=== PATIENT | female | born 1955 | race Caucasian/White ===

== ENCOUNTER → 2017-11-15 09:06 | Outpatient (CLI) | payer OTHER, SELFPAY ==
--- NOTE | 2017-11-15 09:12 | MM_ITS ---
MM Dig screening mamm BI w/CAD CAD Screening INDICATION: Screening for breast cancer ORDERING PHYSICIAN: Rg Lincoln MD PATIENT AGE: 62 years COMPARISON: 06/11/2007 TECHNIQUE: Standard CC and MLO images were obtained. R2 CAD reviewed. FINDINGS: There is average fibroglandular tissue. No malignant appearing mass or malignant appearing microcalcification is evident. Benign-appearing nodular densities are present bilaterally. IMPRESSION: Benign findings. No evidence of malignancy BI-RADS Category: 2 Benign Finding(s) RECOMMENDED FOLLOW-UP: 1YR - 1 YEAR FOLLOW-UP (A letter has been sent to the patient regarding results of the study.)
--- NOTE | 2017-11-15 09:12 | XR_ITS ---
XR DEXA axial skeleton HISTORY: ITS.REASON: screening ORDERING PHYSICIAN: Rg Lincoln MD PATIENT AGE: 62 years COMPARISON: None FINDINGS: The BMD measured at the Right femoral neck is 0.842 g/cm squared with a T score of -1.4. This is considered Osteopenic according to the World Health Organization criteria. Fracture risk is Moderate. Treatment is advised. L1 L4 density has a T score of 2.4 IMPRESSION: Osteopenia with moderate fracture risk. Treatment suggested. Recommend follow-up exam November 2019
--- NOTE | 2017-11-15 09:12 | US_ITS ---
US transvaginal HISTORY: Right-sided pelvic pain, dysfunctional uterine bleeding ITS.REASON: DUB ORDERING PHYSICIAN: Rg Lincoln MD PATIENT AGE: 62 years Comparison: None FINDINGS: UTERUS: The uterus measures 6.8 x 3.4 x 4.7 cm. Combined endometrial thickness is 7 mm. There is a small Nabothian cyst at 7 mm. The right ovary was not identified. The left ovary is small measuring 9 x 7 mm. No adnexal mass or cul-de-sac fluid. IMPRESSION: 1. Endometrium is 7 mm which is is slightly thickened for postmenopausal patient. 2. Right ovary not identified
== END ==
PROVIDERS: PCP Family Medicine; Visit Provider Obstetrics & Gynecology
DX: Z12.31 Encounter for screening mammogram for malignant neoplasm of breast (principal); Z78.0 Asymptomatic menopausal state; N93.8 Other specified abnormal uterine and vaginal bleeding
CPT/HCPCS: 76830; 77067; 77080

== ENCOUNTER → 2017-11-20 22:35 | Outpatient (CLI) | payer OTHER, SELFPAY | PROVIDERS: PCP Family Medicine; Visit Provider Obstetrics & Gynecology | DX: R00.2 Palpitations (principal) | CPT/HCPCS: 93005 ==

== ENCOUNTER → 2017-12-06 06:51 | Outpatient (CLI) | payer OTHER, SELFPAY ==
--- NOTE | 2017-12-06 06:53 | CA_ITS ---
PROCEDURE: 2-D M-mode and color Doppler study INDICATIONS FOR THE TEST: Chest pain COPD Heart Murmur Tobacco Smoking Palpitations+ Fatigue Syncope Edema Hypertension Diabetes Mellitus Rheumatic Fever SOB+MALONE+Obesity+Hyperlipidemia+ Family History HD+ Additional History fatigue in the evening PATIENT INFORMATION HEIGHT: 67 WEIGHT: 226 GENDER: Female B/P: 127/65 2-D/M-MODE INTERPRETATION: 2-D MEASUREMENTS OBSERVED VALUES IN CMS Right Ventricular Dimension (RVDd) 2.6 Interventricular Septum (Thickness)(IVsd) 0.9 Left Ventricular Internal Dimensions(LVIDd) 5.3 Left Ventricular Posterior Wall (Thickness)(LVPWd) 0.9 Aortic Root 2.7 Aortic Cusp Separation 2.0 Left Atrial Dimensions (LAD) 4.4 2D 1. Left atrium is mildly enlarged, left ventricle is normal size, there is no concentric left ventricular hypertrophy, visually estimated ejection fraction 55% with no regional wall motion abnormality. 2. The right atrium and right ventricle are relatively normal size and function. 3. The aortic valve is minimally thickened and fibrosed. 4. The mitral and tricuspid valvular grossly normal. 5. The pulmonic valve is poorly visualized. 6. No significant pericardial effusion noted. DOPPLER INTERROGATION: Doppler interrogation of the aortic, mitral and tricuspid valvular presence of mild mitral and tricuspid regurgitation, tricuspid regurgitation jet velocity is inadequate for calculation of the right ventricular systolic pressure, grade 1 diastolic dysfunction seen without tissue Doppler evidence of raised left atrial pressure. CONCLUSION: 1. Mildly enlarged left atrium, normal left ventricular size, there is no concentric left ventricular hypertrophy, visually estimated ejection fraction of 55% with no regional wall motion abnormality. Grade 1 diastolic dysfunction seen without tissue Doppler evidence of raised left atrial pressure. 2. Mild mitral and tricuspid regurgitation 3. No significant pericardial effusion noted.
--- NOTE | 2017-12-06 06:53 | NM_ITS ---
SPECT MYOCARDIAL PERFUSION SCAN, REST AND STRESS: EXERCISE STRESS: [facility] REVIEW QGS EF AND WALL MOTION EVALUATION: QPS - PERFUSION EVALUATION: HISTORY: SOB, Palpitations, Fatigue, Abnormal EKG PROCEDURE: Rest imaging performed after administration of10.53 millicuries Tc MIBI. Dose administered at7:05 a.m., with imaging thereafter. Stress imaging was then performed following6 minutes of exercise stress. The patient achieved a heart [id number] with projected heart rate of133 . Resting BP132/63 with stress 170/80. At maximum exercise stress,32.0 millicuries Tc MIBI administered at8:25 a.m. with [id number] minutes thereafter. FINDINGS: Perfusion Evaluation: The single slice spect images as well as the [facility] bull's-eye data summary were reviewed. Wall Motion and Ejection Fraction Evaluation: Gated SPECT review and analysis used to evaluate these features. There is a 69 % left ventricular ejection fraction. There seems to be good wall motion Stress images reveal decreased activity in the anterior wall while rest images reveal uniform echo activity. Gated images corrected ejection fraction is 69% with normal wall motion IMPRESSION: High risk abnormal stress test with reversible ischemia in the anterior wall. Normal ejection fraction normal wall motion
--- NOTE | 2017-12-06 07:40 | HMH.ITSHM ---
Current Home Medications as stated by this patient Risa Felder or financial service representative. []RALOXIFENE LEVOTHYROXINE CALCIUM MULTIVITAMIN
== END ==
PROVIDERS: PCP Family Medicine; Visit Provider Internal Medicine
DX: R00.2 Palpitations (principal); R06.09 Other forms of dyspnea; R94.31 Abnormal electrocardiogram [ECG] [EKG]
CPT/HCPCS: 78452; 93017; 93306; A9502

== ENCOUNTER → 2018-12-11 09:04 | Outpatient (CLI) | payer OTHER, SELFPAY ==
--- NOTE | 2018-12-11 09:10 | MM_ITS ---
PROCEDURE: MM DIG SCREENING MAMM BI W/CAD Patient Age:63Y CLINICAL INDICATION: screening routine screening mammogram No hormones. 50 lb weight loss noted. No new complaints otherwise. Family history. Noncontributory COMPARISON: MM [employer] [facility] [employer] Rec[employer] from 04/27/2006 MM [employer] [facility] [employer] from 06/11/2007 RIBI MM Dig screening mamm BI w/CAD from 11/15/2017 TECHNIQUE: Standard CC and MLO images were obtained. R2 CAD reviewed. FINDINGS: [id number] residual breast density. CAD highlights no areas of significant concern.. No dominant or suspicious mass but no suspicious calcifications. No significant change since prior studies. But stable appearing intramammary node at the deep axillary left breast unchanged since 2018 Bilateral follow-up mammogram 1 year recommended the IMPRESSION: . Stable bilateral mammogram with no significant new findings. Bilateral follow-up 1 year BI-RAD Category: 1 Negative FOLLOW-UP: 1YR 1 Year Follow-up the (A letter has been sent to the patient regarding results of the study.) Dictated by: Al Arango MD 12/11/2018 15:57 Electronically signed by Al Arango MD in [place] 12/11/2018 15:57
== END ==
PROVIDERS: PCP Nurse Practitioner Family; Visit Provider Obstetrics & Gynecology
DX: Z12.31 Encounter for screening mammogram for malignant neoplasm of breast (principal)
CPT/HCPCS: 77067

== ENCOUNTER → 2019-12-09 08:54 | Outpatient (CLI) | payer MEDICARE, SELFPAY ==
--- NOTE | 2019-12-09 | XR_ITS ---
PROCEDURE: XR FOOT LT MIN 3V CLINICAL INDICATION: PAIN IN LT FOOT COMPARISON: No exams were available for comparison FINDINGS: No fracture or dislocation. No lytic or blastic change. There is normal mineralization. The minimal osteoarthritic change of the 1st metatarsophalangeal joint and at the talonavicular joint. There is a small calcaneal spur. Other findings:None. IMPRESSION: Mild osteoarthritis Dictated by: Carter Fonseca MD 12/09/2019 10:25 Carter Fonseca MD in [place] 12/09/2019 10:25
--- NOTE | 2019-12-09 | XR_ITS ---
PROCEDURE: XR FOOT RT MIN 3V CLINICAL INDICATION: PAIN IN RT FOOT COMPARISON: No exams were available for comparison FINDINGS: No fracture or dislocation. No lytic or blastic change. There is normal mineralization. Minimal osteoarthritic change 1st metatarsophalangeal joint and talonavicular joint. Small calcaneal spur. Other findings:None. IMPRESSION: Mild osteoarthritic change Dictated by: Carter Fonseca MD 12/09/2019 10:26 Carter Fonseca MD in [place] 12/09/2019 10:26
== END ==
PROVIDERS: PCP Nurse Practitioner Family; Visit Provider Nurse Practitioner Family
DX: M79.672 Pain in left foot (principal); M79.671 Pain in right foot
CPT/HCPCS: 73630

== ENCOUNTER → 2021-01-19 09:28 | Outpatient (CLI) | payer MEDICARE, SELFPAY ==
--- NOTE | 2021-01-19 09:39 | MM_ITS ---
PROCEDURE INFORMATION: Exam: MG Bilateral Screening 3D Mammography Exam date and time: 01/19/2021 9:39 AM Age: 65 years old Clinical indication: Screening mammogram TECHNIQUE: Imaging protocol: Bilateral screening tomosynthesis and 2D mammography including computer-aided detection (CAD) when performed. COMPARISON: 1. MG MM DIG SCREENING MAMM BI W/CAD 12/11/2018 9:47 AM 2. MG SCBI MM Dig screening mamm BI w/CAD 11/15/2017 9:35 AM 3. MG MM [employer] 06/11/2007 10:07 AM 4. MG MM [employer] [facility] [employer] T[employer] 04/27/2006 10:07 AM FINDINGS: MAMMOGRAPHY: Breast composition: There are scattered areas of fibroglandular density. Mass: None. Architectural distortion: No new or suspicious architectural distortion. Calcifications: No new or suspicious calcifications are present Asymmetric density: No new or suspicious asymmetric density is present Skin thickening: None. Axillary adenopathy: None. IMPRESSION: No mammographic evidence of malignancy. Recommend annual screening mammography unless otherwise clinically indicated. ASSESSMENT: BI-RADS category 1: Negative
--- NOTE | 2021-01-19 10:30 | XR_ITS ---
PROCEDURE: XR DEXA AXIAL SKELETON CLINICAL HISTORY: POST MENOPAUSAL COMPARISON: CR DEXAAX XR DEXA axial skeleton from 11/15/2017 FINDINGS: The right hip BMD is 0.782 with a T-score of -0.6. The left hip BMD is 0.696 with a T-score of -1.4. The lumbar spine BMD is 1.239 with a T-score of 1.7. Previously the lowest density was in the right femoral neck with a T-score -1.4 IMPRESSION: This patient is considered normal according to the World Health Organization criteria. Fracture risk is low. Based on these results a follow-up exam is recommended in 2 year. Dictated by: Carter Fonseca MD 01/19/2021 14:47 Carter Fonseca MD in [place] 01/19/2021 14:47
== END ==
PROVIDERS: PCP Nurse Practitioner Family; Visit Provider Nurse Practitioner Family
DX: Z12.31 Encounter for screening mammogram for malignant neoplasm of breast (principal); Z78.0 Asymptomatic menopausal state
CPT/HCPCS: 77063; 77067; 77080

== ENCOUNTER 2023-02-20 13:53 | Outpatient (CLI) | payer MEDICARE, SELFPAY ==
[2023-02-20 15:06] LABS: Alanine Aminotransferase 16 U/L (12-78); Albumin Level 4.2 g/dl (3.5-5.0); Albumin/Globulin Ratio 1.5 (1.1-1.8); Alkaline Phosphatase 70 U/L (38-126); Anion Gap 7.4 mEq/L (5-15); Aspartate Amino Transferase 27 U/L (14-36); Bilirubin,Total 0.7 mg/dl (0.2-1.3); Blood Urea Nitrogen 18 mg/dl (7-17); Carbon Dioxide 33 mmol/L (22.0-30.0); Chloride 102 mmol/L (98-107); Chol/HDL Ratio 3.8 (1-3.5); Cholesterol 256 mg/dl (140-200); Estimated Glomerular Filt Rate 83 ml/min (>60); GFR (African American) 100 ML/MIN (>60); Globulin 2.8 g/dL (1.3-3.2); Glucose 88 mg/dl (74-100); HDL Cholesterol 68 mg/dl (40-60); Potassium 4.4 mmoL/L (3.5-5.1); Sodium 138 mmol/L (136-145); Triglycerides 63 mg/dl (30-150); VLDL Cholesterol 13 mg/dL (0-40)
[2023-02-20 15:18] LABS: Direct LDL Cholesterol 140.63 mg/dL (100-129)
[2023-02-20 15:25] LABS: 25-OH Vitamin D, Total 49.9 ng/mL (30-100)
[2023-02-20 15:59] LABS: Vitamin B12 293 pg/mL (239-931)
[2023-02-22 08:32] LABS: Triiodothyronine (T3) Free 2.7 pg/mL (2.0-4.4)
== END 2023-02-20 23:59 ==
LOC: LAB.DROPOF 13:54
PROVIDERS: PCP Nurse Practitioner Family; Visit Provider Nurse Practitioner Family
DX: E03.9 Hypothyroidism, unspecified (principal); M85.80 Other specified disorders of bone density and structure, unspecified site; R79.89 Other specified abnormal findings of blood chemistry; Z78.9 Other specified health status
CPT/HCPCS: 80053; 80061; 82306; 82607; 84443; 84481

== ENCOUNTER 2023-03-06 16:08 | Outpatient (CLI) | payer MEDICARE, SELFPAY ==
--- NOTE | 2023-03-06 16:08 | MM_ITS ---
PROCEDURE INFORMATION: Exam: MG Bilateral Screening 3D Mammography Exam date and time: 03/06/2023 3:54 PM Age: 67 years old Clinical indication: Screening examination TECHNIQUE: Imaging protocol: Bilateral Screening tomosynthesis and 2D mammography including computer-aided detection (CAD) when performed. COMPARISON: 1. MG MM DIG SCREENING MAMM BI W/CAD 01/19/2021 9:50 AM 2. MG MM DIG SCREENING MAMM BI W/CAD 12/11/2018 9:47 AM FINDINGS: MAMMOGRAPHY: Breast composition: There are scattered areas of fibroglandular density. Mass: None. Architectural distortion: None. Calcifications: No suspicious calcifications. Asymmetric density: None. Skin thickening: None. Axillary adenopathy: None. IMPRESSION: No mammographic evidence of malignancy. Annual screening is recommended unless otherwise clinically indicated. ASSESSMENT: BI-RADS Category 1: Negative
== END 2023-03-06 23:59 ==
LOC: RAD 16:08
PROVIDERS: PCP Nurse Practitioner Family; Visit Provider Nurse Practitioner Family
DX: Z12.31 Encounter for screening mammogram for malignant neoplasm of breast (principal)
CPT/HCPCS: 77063; 77067

== ENCOUNTER 2023-03-10 08:33 | Outpatient (CLI) | payer MEDICARE, SELFPAY ==
--- NOTE | 2023-03-10 08:34 | XR_ITS ---
FINAL REPORT CLINICAL HISTORY: Osteoporosis screening COMPARISON: 01/19/2021 FINDINGS: Using L1-4, the bone mineral density of the spine is 1.231 g/cm2, corresponding to T-score of 1.7 which is within normal limits. Previously was 1.239 with T-score of 1.7. Using the left hip, the bone mineral density of the femoral neck is 0.737 g/cm2, corresponding to a T-score of -1.0 which is at the lower limits of normal. Previously was 0.696 with T-score of -1.4. Using the right hip, the bone mineral density of the femoral neck is 0.776 g/cm2, corresponding to a T-score of -0.7 which is within normal limits. Previously was 0.782 with T-score of -0.6. FRAX not reported because all T-scores at or above -1.0. NOTE: T-score: Standard deviation compared with peak bone mass of young adult mean. *Following the recommendations of the International Society of Bone densitometry, classification of hip BMD is based on the lower of two T-scores; total hip or femoral neck. IMPRESSION: Normal bone mineral density of the lumbar spine and hips. Reviewed, Interpreted and Dictated by Tu Gao MD Transcribed by Haylee Mcdonald Authenticated and [facility]
== END 2023-03-10 23:59 ==
LOC: RAD 08:34
PROVIDERS: PCP Nurse Practitioner Family; Visit Provider Nurse Practitioner Family
DX: Z13.820 Encounter for screening for osteoporosis (principal); Z78.0 Asymptomatic menopausal state
CPT/HCPCS: 77080

== ENCOUNTER 2023-05-30 12:38 | Outpatient (CLI) | payer MEDICARE, SELFPAY ==
[2023-05-30 13:53] LABS: Alanine Aminotransferase 17 U/L (12-78); Albumin Level 4.2 g/dl (3.5-5.0); Albumin/Globulin Ratio 1.6 (1.1-1.8); Alkaline Phosphatase 81 U/L (38-126); Aspartate Amino Transferase 26 U/L (14-36); Bilirubin,Total 0.6 mg/dl (0.2-1.3); Blood Urea Nitrogen 19 mg/dl (7-17); Calcium 9.7 mg/dl (8.4-10.2); Carbon Dioxide 30 mmol/L (22.0-30.0); Chloride 106 mmol/L (98-107); Cholesterol 242 mg/dl (140-200); Estimated Glomerular Filt Rate 83 ml/min (>60); GFR (African American) 100 ML/MIN (>60); Globulin 2.6 g/dL (1.3-3.2); Glucose 100 mg/dl (74-100); Sodium 143 mmol/L (136-145); Total Protein,Serum 6.8 g/dl (6.3-8.2); Triglycerides 49 mg/dl (30-150); VLDL Cholesterol 10 mg/dL (0-40)
[2023-05-30 14:00] LABS: HDL Cholesterol 106 mg/dl (40-60)
[2023-05-30 14:04] LABS: Direct LDL Cholesterol 118.88 mg/dL (100-129)
== END 2023-05-30 23:59 | disposition home or self-care (01) ==
LOC: LAB.DROPOF 12:38
PROVIDERS: PCP Nurse Practitioner Family; Visit Provider Nurse Practitioner Family
DX: E78.5 Hyperlipidemia, unspecified (principal)
CPT/HCPCS: 80053; 80061

== ENCOUNTER 2023-10-04 13:09 | Outpatient (CLI) | payer MEDICARE, SELFPAY ==
[2023-10-04 19:39] LABS: T4 (Thyroxine) 8.8 ug/dl (5.53-11.0)
[2023-10-04 19:52] LABS: Thyroid Stimulating Hormone 1.32 uIU/mL (0.465-4.68)
[2023-10-06 08:20] LABS: Triiodothyronine (T3) Free 3.1 pg/mL (2.0-4.4)
== END 2023-10-04 23:59 | disposition home or self-care (01) ==
LOC: LAB.DROPOF 10-09 13:10
PROVIDERS: PCP Nurse Practitioner Family; Visit Provider Nurse Practitioner Family
DX: E03.9 Hypothyroidism, unspecified (principal)
CPT/HCPCS: 84436; 84443; 84481

== ENCOUNTER 2024-10-21 09:45 | Outpatient (CLI) | payer MEDICARE, SELFPAY ==
--- OUTSIDE RECORDS SUMMARY | 2019-03-28 09:15 | XMS_ITS | Continuity of Care Document ---
Author Organization [facility] Address [address] [address] Phone Care Team Providers Care Family Court Registrar Name Role Phone Rakan Romero MD Unavailable Unavailable Procedures Procedure Date Office/outpatient visit,est, mod 2019 POLYSOMNOGRAPHY, 4 OR MORE PROFESSIONAL COMP POLYSOMNOGRAPHY, 4 OR MORE TECHNICAL COM P Office/outpatient visit,est, mod 2019 POLYSOMNOGRAPHY, 4 OR MORE PROFESSIONAL COMP POLYSOMNOGRAPHY, 4 OR MORE TECHNICAL COM P Office/outpatient visit,new, mod 2018 Advance Directives Directive Yes / No Effective Date File Name No Information Encounters Encounter Description Practice Location Reason(s) For Visit Diagnoses Date Provider Providers Copied on Encounter Office/outpa tient visit,est, mod [facility], [address], [id number], tel:[phone] [facility] No Information 0 Pope Rakan. [address] [place] [address], [id number], [place]. tel:[phone] Referring Provider: Rakan Funez, [address] [place] [address], [id number]. tel:[phone] [facility], [address], [id number], tel:[phone] [facility] [place] No Information 0 Pope Rakan. [address] [place] [address], [id number], [place]. tel:[phone] Referring Provider: Rakan Funez, [address] [place] [address], [id number]. tel:[phone] [facility], [address] [place] [address], [id number], tel:[phone] [facility] No Information 0 Girma Lozada. [address], [address] [place] [address], [id number], [place]. tel:[phone] Referring Provider: Neville Rayo MD, [address] [place] [address], [id number]. tel:[phone] Office/outpa tient visit,est, [facility], [address] [place] [address], [id number], [place] tel:[phone] [facility] No Information 0 Pope Rakan. [address] [place] [address], [id number], [place]. tel:[phone] Referring Provider: Rakan Funez, [address] [place] [address], [id number]. tel:[phone] [facility], [address] [place] [address], [id number], [place] tel:[phone] [facility] No Information 9 Pope Rakan. [address] [place] [address], [id number], [place]. tel:[phone] Referring Provider: Rakan Funez, [address] [place] [address], [id number]. tel:[phone] [facility], [address], [id number], [place] tel:[phone] [facility] [place] No Information 9 Girma Lozada. [address] [place] [address], [id number], . tel:[phone] Referring Provider: Neville Rayo MD, [address] [place] [address], [place], [address]. tel:[phone] Office/outpa tient visit,[facility], [address] [address], [place], [place], [id number], [place] tel:[phone] [facility] No Information 9 Pope Rakan. [address] [place] [address], [id number], . tel:[phone] Referring Provider: Esther CHENP S, [address] [place], [address]. tel:[phone] Family History Family Member Type Diagnosis Age At Onset No Information Payers Payer name Insurance type Covered democrat ID Authoriza tion(s) Medicare Cigna [id number] [employer] [facility] CI [id number] Social History Type Description Quantity Date Captured Comments Sex Female Smoking Status No Information Chief Complaint And Reason For Visit No Information Reason For Referral Reason For Referral No Information History Of Present Illness Encounter Date Complaint History Of Prese nt Illness No Information Functional Status Date Functional Assessmen t No Information Instructions Date Instruction Additional Infor mation No Information Assessments Type Assessment Date No Information Patient Care Teams Name Effective Dates (start - stop) Status Members No Information
[2024-10-21 18:24] LABS: Alanine Aminotransferase 17 U/L (12-78); Albumin Level 4.6 g/dl (3.5-5.0); Albumin/Globulin Ratio 1.5 (1.1-1.8); Alkaline Phosphatase 103 U/L (38-126); Anion Gap 14.8 mEq/L (5-15); Aspartate Amino Transferase 24 U/L (14-36); Bilirubin,Total 0.9 mg/dl (0.2-1.3); Blood Urea Nitrogen 16 mg/dl (7-17); Calcium 9.5 mg/dl (8.4-10.2); Carbon Dioxide 27 mmol/L (22.0-30.0); Chloride 103 mmol/L (98-107); Cholesterol 221 mg/dl (140-200); Creatinine,Serum 0.80 mg/dl (0.52-1.04); Estimated Glomerular Filt Rate 71 ml/min (>60); GFR (African American) 86 ML/MIN (>60); Globulin 3.1 g/dL (1.3-3.2); Glucose 89 mg/dl (74-100); HDL Cholesterol 42 mg/dl (40-60); Potassium 4.8 mmoL/L (3.5-5.1); Sodium 140 mmol/L (136-145); Total Protein,Serum 7.7 g/dl (6.3-8.2); Triglycerides 99 mg/dl (30-150)
[2024-10-21 18:40] LABS: 25-OH Vitamin D, Total 28.9 ng/mL (30-100)
[2024-10-21 18:43] LABS: T4 (Thyroxine) 9.2 ug/dl (5.53-11.0)
[2024-10-21 19:16] LABS: Vitamin B12 652 pg/mL (239-931)
[2024-10-21 19:29] LABS: Free T4 (Free Thyroxine) 1.33 ng/dl (0.78-2.19)
[2024-10-21 20:13] LABS: Thyroid Stimulating Hormone 1.92 uIU/mL (0.465-4.68)
[2024-10-23 13:18] LABS: Triiodothyronine (T3) Free 2.9 pg/mL (2.0-4.4)
== END 2024-10-21 23:59 | disposition home or self-care (01) ==
LOC: LAB.DROPOF 10-22 10:09
PROVIDERS: PCP Nurse Practitioner Family; Visit Provider Nurse Practitioner Family
DX: E03.9 Hypothyroidism, unspecified (principal); R79.89 Other specified abnormal findings of blood chemistry; E78.2 Mixed hyperlipidemia
CPT/HCPCS: 80053; 80061; 82306; 82607; 84436; 84439; 84443; 84481; 86376; 86800

== ENCOUNTER 2024-11-05 10:02 | Outpatient (CLI) | payer MEDICARE, SELFPAY ==
--- OUTSIDE RECORDS SUMMARY | 2024-11-05 10:14 | XMS_ITS ---
Laboratory report Created on: October 25, 2024 CHAPIS ORTIZ : 1955 Sex: Female Author Organization Unknown PROBLEMS Problems List Code Description RESULTS Laboratory Orders Date Order Code Test 2024-10-21 [id number] THYROGLOBULIN AN TIBODY 2024-10-21 [id number] THYROID PEROXIDA SE (TPO) AB Laboratory Results Date LOINC Test Value Unit Reference Range Interpre tation 2024-10-21 8098-6 THYROGLOBULIN ANTIBODY 3.7 IU/ML 0.0-0. 9 H 2024-10-21 [id number] THYROID PEROXIDA SE (TPO) AB 160 IU/ML 0-34 H
--- OUTSIDE RECORDS SUMMARY | 2024-11-05 10:14 | XMS_ITS ---
Laboratory report Created on: October 25, 2024 CHAPIS ORTIZ : 1955 Sex: Female Author Organization Unknown PROBLEMS Problems List Code Description RESULTS Laboratory Orders Date Order Code Test 2024-10-21 [id number] TRIIODOTHYRONINE (T3), FREE Laboratory Results Date LOINC Test Value Unit Reference Range Interpre tation 2024-10-21 [id number] TRIIODOTHYRONINE (T3), FREE 2.9 PG/ML 2.0-4.4
--- NOTE | 2024-11-05 10:30 | MM_ITS ---
PROCEDURE INFORMATION: Exam: MG Bilateral Screening 3D Mammography Exam date and time: 11/05/2024 10:33 AM Age: 69 years old Clinical indication: Screening examination TECHNIQUE: Imaging protocol: Bilateral Screening tomosynthesis and 2D mammography including computer-aided detection (CAD) when performed. COMPARISON: 1. MG MM DIG SCREENING MAMM BI W/CAD 03/06/2023 3:54 PM 2. MG MM DIG SCREENING MAMM BI W/CAD 01/19/2021 9:50 AM FINDINGS: MAMMOGRAPHY: Breast composition: There are scattered areas of fibroglandular density. Mass: None. Architectural distortion: None. Calcifications: No suspicious calcifications. Asymmetric density: None. Skin thickening: None. Axillary adenopathy: None. IMPRESSION: No mammographic evidence of malignancy. Annual screening is recommended unless otherwise clinically indicated. ASSESSMENT: BI-RADS Category 1: Negative.
--- NOTE | 2024-11-05 11:00 | US_ITS ---
FINAL REPORT TECHNIQUE: Sonographic images of the thyroid gland were obtained in the longitudinal and transverse planes. CLINICAL HISTORY: hypothyroidism COMPARISON: None FINDINGS: The right lobe measures 1.4 x 4.2 x 1.5 cm. The right lobe is homogeneous. There are no cystic or solid nodules. The left lobe measures 9.1 x 3.0 x 1.2 cm. The left lobe is homogeneous. There are no cystic or solid nodules. The isthmus measures 3 mm. This is normal. IMPRESSION: Unremarkable thyroid ultrasound. Reviewed, Interpreted and Dictated by Rosibel Ojeda MD Transcribed by Haylee Mcdonald Authenticated and [facility]
== END 2024-11-05 23:59 | disposition home or self-care (01) ==
LOC: RAD 10:02
PROVIDERS: PCP Nurse Practitioner Family; Visit Provider Nurse Practitioner Family
DX: Z12.31 Encounter for screening mammogram for malignant neoplasm of breast (principal); E03.9 Hypothyroidism, unspecified; R92.323 Mammographic fibroglandular density, bilateral breasts
CPT/HCPCS: 76536; 77063; 77067

== ENCOUNTER 2025-01-17 12:18 | Outpatient (CLI) | payer MEDICARE, SELFPAY ==
[2025-01-17 12:49] LABS: C-Reactive Protein 2.1 mg/L (0-4)
[2025-01-17 12:58] LABS: 25-OH Vitamin D, Total 87.6 ng/mL (30-100)
[2025-01-17 13:16] LABS: Thyroid Stimulating Hormone 1.16 uIU/mL (0.465-4.68)
[2025-01-18 04:35] LABS: Triiodothyronine (T3) Free 2.4 pg/mL (2.0-4.4)
== END 2025-01-17 23:59 | disposition home or self-care (01) ==
LOC: LAB.DROPOF 12:19
PROVIDERS: PCP Nurse Practitioner Family; Visit Provider Nurse Practitioner Family
DX: E03.9 Hypothyroidism, unspecified (principal); E78.2 Mixed hyperlipidemia; R79.89 Other specified abnormal findings of blood chemistry; E55.9 Vitamin D deficiency, unspecified
CPT/HCPCS: 82306; 83695; 84443; 84481; 86140